=== PATIENT | female | born 1940 | race Caucasian/White ===

== ENCOUNTER 2021-11-04 17:07 | Inpatient (IN) | payer OTHER, MEDICARE ==
[~2021-11-04] VITALS: Ht 167.7 cm; Wt 95.3 kg
[2021-11-04] MEDS ORDERED: ONDANSETRON 4 MG/2 ML (SDV) Z0FRAN ONE (17:12)
[2021-11-04 17:34] LABS: BASOPHILS % (AUTO) 0 % (0-10); EOSINOPHILS % (AUTO) 0 % (0-10); HEMATOCRIT 47 % (35-52); HEMOGLOBIN 15.2 g/dL (11.5-16.0); LYMPHOCYTES # (AUTO) 0.3 10^3/uL (1.0-4.0); LYMPHOCYTES % (AUTO) 2 % (12-44); MEAN CORPUSCULAR HEMOGLOBIN 32 pg (25-34); MEAN CORPUSCULAR HGB CONC 32 g/dL (32-36); MEAN CORPUSCULAR VOLUME 98 fL (80-99); MEAN PLATELET VOLUME 11.8 fL (9.0-12.2); MONOCYTES # (AUTO) 1.2 10^3/uL (0.0-1.0); MONOCYTES % (AUTO) 7 % (0-12); NEUTROPHILS # (AUTO) 15.9 10^3/uL (1.8-7.8); NEUTROPHILS % (AUTO) 91 % (42-75); PLATELET COUNT 231 10^3/uL (130-400); WHITE BLOOD COUNT 17.5 10^3/uL (4.3-11.0)
--- NOTE | 2021-11-04 17:35 | ED Neurological Problem ---
General Chief Complaint: Neuro-Stroke Like Symptoms Stated Complaint: POSS STROKE Nursing Triage Note: PT TO RM 2 VIA [facility]. EMS CALLED FOR POSS STROKE. PT FOUND FACE DOWN AT HOME, UNK DOWN TIME. FAMILY LAST SPOKE TO PT YESTERDAY EVENING. PT VOMITING UPON ARRIVAL. PT UNRESPONSIVE EXCEPT FOR SOME TRACKING W EYES. RT SIDED HEMINEGLECT, MOVING BOTH EYES. EMS INITIATED 20G LAC SL, PATENT UPON ARRIVAL W 1L NS INFUSING. Source: EMS Exam Limitations: no limitations History of Present Illness Date Seen by Provider: Nov 04, 2021 Time Seen by Provider: 17:20 Initial Comments Patient is an 81-year-old female who presents to the emergency department, stroke alert. Last spoke with family sometime yesterday evening. Found just prior to arrival here transferred from [place] from home. Was found laying face down on the floor. EMS reports vomiting prior to arrival. She is nonverbal. Not following commands. Eyes are open, she appears to have a leftward gaze, pupils are 2 to 3 mm and reactive. She does appear to move all 4 extremities although is not again following commands will not squeeze on command would not raise her legs either 1. She would have a GCS of less than 8. Blood sugar reported by EMS greater than 100. Shortly after arrival after cursory neurologic exam it was decided to electively intubate the patient to protect her airway. She was sedated with etomidate, preoxygenated, 50 mg of rocuronium was given, #8 ET tube was used with help of the glide scope. Positive visualization of the cords, ET tube passed through the cords. Positive color change on CO2 detector, equal bilateral breath sounds. Secured at 23 cm at the teeth patient remained with an oxygen saturation in the upper 90s to 100 range. She is noted to be tachycardic and what appears to be atrial fibrillation with rapid ventricular response mid to high 120s. Blood pressure is 130 systolic. Review of systems unobtainable as the patient is altered Timing/Duration: unknown Severity: severe Allergies and Home Medications Allergies Coded Allergies: iodine (Unverified Allergy, Unknown, 04/04/15) Patient Home Medication List Home Medication List Reviewed: Yes Review of Systems Review of Systems Constitutional: see HPI Review of systems unobtainable as the patient is altered Past Ynzvysv-Lurbxs-Katmib Hx Patient Social History Smoking Status: Unknown if Ever Smoked Smokeless Tobacco Frequency: Unknown if Ever Used Use of E-Cig and/or Vaping dev: Unable to obtain Use of E-Cig and/or Vaping Toño: Unknown if Ever Used Substance use?: Unable to obtain Alcohol Use?: Unable to obtain Immunizations Up To Date First/Initial COVID19 Vaccinat: [facility] Second COVID19 Vaccination Tyrell: [facility] Third COVID19 Vaccination Date: UNK COVID19 Vaccine Turret Lathe Operator: UN Physical Exam Vital Signs Vital Signs - First Documented 11/04/21 11/04/21 17:08 18:00 Temp 36.6 Pulse 116 Resp 24 B/P (MAP) 134/90 (105) Pulse Ox 93 O2 Delivery Nasal Cannula O2 Flow Rate 10.00 FiO2 30 Capillary Refill : Less Than 3 Seconds Height, Weight, BMI Height: 5'4.00" Weight: 214lbs. oz. 97.481816qf; 33.00 BMI Method: General Appearance: WD/WN, no apparent distress HEENT: normal ENT inspection (No obvious ENT trauma), TMs normal (Right TM appears a little bluish discoloration), other (Pupils 2 to 3 mm, right eye appears to have a leftward gaze preference. Left eye is midline.; She does have some facial edema) Neck: normal inspection Respiratory: lungs clear, normal breath sounds, no respiratory distress, no accessory muscle use Cardiovascular: tachycardia, irregularly irregular Gastrointestinal: soft, other (Nondistended) Genital/Rectal: normal genital exam Extremities: normal inspection, no pedal edema Neurologic/Psychiatric: aphasia, other (Eyes open, nonverbal, not following commands seems to withdraw but cannot localize) Crainal Nerves: abnormal eye position, abnormal gag reflex, other (No facial palsy is noted) Motor/Sensory: positive Babinski's sign (questionable on the left more than right) Skin: normal color, cool, other (Patient has blisters over the anterior chest wall and epigastrium consistent with laying prone. Some of these blisters are ruptured some or not, patient has abrasion to the right knee also right distal lateral thigh) Procedures/Interventions Date of ETT Placement: Nov 04, 2021 Time of ETT Placement: 18:00 Intubation Method: orotracheal Tube Size: 8 Medications: Etomidate, Rocuronium Positive End Tide CO2: Yes Breath Sounds after Intubation: bilateral-equal Intubation Complications: no complications Post Intubation Xray: Yes Progress/Results/Core Measures Results/Orders Lab Results Laboratory Tests Test 11/04/21 17:13 11/04/21 17:17 11/04/21 17:25 Range/Units White Blood Count 17.5 H 4.3-11.0 10^3/uL Red Blood Count 4.79 3.80-5.11 10^6/uL Hemoglobin 15.2 11.5-16.0 g/dL Hematocrit 47 35-52 % Mean Corpuscular Volume 98 80-99 fL Mean Corpuscular Hemoglobin 32 25-34 pg Mean Corpuscular Hemoglobin Concent 32 32-36 g/dL Red Cell Distribution Width 14.1 10.0-14.5 % Platelet Count 231 130-400 10^3/uL Mean Platelet Volume 11.8 9.0-12.2 fL Immature Granulocyte % (Auto) 0 % Neutrophils (%) (Auto) 91 H 42-75 % Lymphocytes (%) (Auto) 2 L 12-44 % Monocytes (%) (Auto) 7 0-12 % Eosinophils (%) (Auto) 0 0-10 % Basophils (%) (Auto) 0 0-10 % Neutrophils # (Auto) 15.9 H 1.8-7.8 10^3/uL Lymphocytes # (Auto) 0.3 L 1.0-4.0 10^3/uL Monocytes # (Auto) 1.2 H 0.0-1.0 10^3/uL Eosinophils # (Auto) 0.0 0.0-0.3 10^3/uL Basophils # (Auto) 0.0 0.0-0.1 10^3/uL Immature Granulocyte # (Auto) 0.1 0.0-0.1 10^3/uL Neutrophils % (Manual) 89 % Lymphocytes % (Manual) 4 % Monocytes % (Manual) 7 % Eosinophils % (Manual) 0 % Basophils % (Manual) 0 % Band Neutrophils 0 % Blood Morphology Comment NORMAL Prothrombin Time 25.7 H 12.2-14.7 SEC INR Comment 2.3 H 0.8-1.4 Activated Partial Thromboplast Time 33 24-35 SEC D-Dimer 1.11 H 0.00-0.49 UG/ML Sodium Level 146 H 135-145 MMOL/L Potassium Level 4.0 3.6-5.0 MMOL/L Chloride Level 104 98-107 MMOL/L Carbon Dioxide Level 21 21-32 MMOL/L Anion Gap 21 H 5-14 MMOL/L Blood Urea Nitrogen 31 H 7-18 MG/DL Creatinine 1.10 0.60-1.30 MG/DL Estimat Glomerular Filtration Rate 51 BUN/Creatinine Ratio 28 Glucose Level 188 H 70-105 MG/DL Calcium Level 10.3 H 8.5-10.1 MG/DL Corrected Calcium 10.4 H 8.5-10.1 MG/DL Total Bilirubin 1.4 H 0.1-1.0 MG/DL Aspartate Amino Transf (AST/SGOT) 53 H 5-34 U/L Alanine Aminotransferase (ALT/SGPT) 29 0-55 U/L Alkaline Phosphatase 60 40-136 U/L Total Creatine Kinase 641 H 29-168 U/L Troponin I 1.130 *H <0.028 NG/ML Total Protein 7.3 6.4-8.2 GM/DL Albumin 3.9 3.2-4.5 GM/DL Triglycerides Level 108 <150 MG/DL Urine Color ORANGE Urine Clarity SL CLOUDY Urine pH 5.5 5-9 Urine Specific [place] >=1.030 1.016-1.022 Urine Protein 1+ H NEGATIVE Urine Glucose (UA) NEGATIVE NEGATIVE Urine Ketones NEGATIVE NEGATIVE Urine Nitrite NEGATIVE NEGATIVE Urine Bilirubin NEGATIVE NEGATIVE Urine Urobilinogen 0.2 < = 1.0 MG/DL Urine Leukocyte Esterase NEGATIVE NEGATIVE Urine RBC (Auto) 1+ H NEGATIVE Urine RBC NONE /HPF Urine WBC 5-10 H /HPF Urine Squamous Epithelial Cells 0-2 /HPF Urine Crystals NONE /LPF Urine Bacteria LARGE H /HPF Urine Casts NONE /LPF Urine Mucus NEGATIVE /LPF Urine Culture Indicated YES Influenza Type A (RT-PCR) Not Detected Not Detecte Influenza Type B (RT-PCR) Not Detected Not Detecte SARS-CoV-2 RNA (RT-PCR) Not Detected Not Detecte Micro Results Microbiology 11/04/21 Urine Culture - Preliminary, Resulted Gram Negative Jonah My Orders Orders - SLIME DELANEY MD Ondansetron Injection (Zofran Injectio (11/04/21 17:12) Cbc With Automated Diff (11/04/21 17:26) Protime With Inr (11/04/21 17:26) Partial Thromboplastin Time (11/04/21 17:26) Comprehensive Metabolic Panel (11/04/21 17:26) Fibrin Degradation Products (11/04/21 17:26) Troponin I Blair (11/04/21 17:) Ua Culture If Indicated (11/04/21 17:) Chest 1 View, Ap/Pa Only (11/04/21 17:26) Catheter(Urinary) Insert & Ass 03,15 (11/04/21 17:26) Ekg Tracing (11/04/21:) Nothing By Mouth (11/04/21 Dinner) Accucheck Stat ONCE (11/04/21 17:26) Ed Iv/Invasive Line Start (11/04/21 17:26) Ed Iv/Invasive Line Start (11/04/21:) Vital Signs Stroke Patient Q15M (11/04/21 17:26) Ct Head Wo-R/O Stroke (11/04/21 17:26) O2 (11/04/21:) Intake & Output 06,14,22 (11/04/21:) Monitor-Rhythm Ecg Trace Only (11/04/21 17:26) Dysphagia Screening Tool (11/04/21 17:26) Post Thrombolytic Adminstratio (11/04/21 17:26) Lipid Panel (11/05/21 06:00) Accucheck Stat ONCE (11/04/21:) Creatine Kinase (11/04/21 17:26) Ct Cervical Spine Wo (11/04/21 17:26) Propofol Drip (Icu) (Diprivan Drip (Icu) (11/04/21 17:30) Sedation Communication Q48H (11/04/21 17:29) Triglycerides (11/04/21 17:28) Triglycerides (11/06/21 17:28) Manual Differential (11/04/21 17:13) Urine Culture (11/04/21 17:17) Ed Admission (Communication) (11/04/21 19:05) Medications Given in ED Vital Signs/I&O 11/04/21 11/04/21 11/04/21 17:08 17:37 18:00 Temp 36.6 Pulse 116 101 94 Resp 24 18 B/P (MAP) 134/90 (105) 159/88 Pulse Ox 93 100 O2 Delivery Nasal Cannula O2 Flow Rate 10.00 FiO2 30 11/05/21 00:00 Intake Total 100 ml Balance 100 ml Blood Pressure Mean: 105 FSBG Bedside Testing Finger Stick Blood Glucose: 182 Blood Glucose Action Taken: DR DELANEY NOTIFIED Admisison Planning May Need Admission (Planning): 18:42 Progress Progress Note #1: Time: 18:42 Progress Note Clouded films to [facility]. Reviewed films with Neurosurgery refrigeration installer. Surgeon agrees that this is likely a non survivable head bleed. And even if survivable, her neurologic outcome would be dismal. Progress Note #2: Time: 19:04 Progress Note Discussed with Dr. Gil hospitalist, he is agreeable for palliative care/hospice admit. I had a long discussion with the brother who is DURABLE POWER OF SEMICONDU[employer] PROCESSING GROUP LEADER. He understands the gravity of the situation as well as potential neurologic outcome were aggressive medical/surgical treatment to be sought. Family would like extubation and palliative care. They are agreeable with hospice come passes as a provider. Patient will be extubated here in the emergency department. Orders per Dr. Gil Initial ECG Impression Date: Nov 04, 2021 Initial ECG Impression Time: 18:01 Initial ECG Rate: 83 Initial ECG Rhythm: A Fib/Flutter Initial ECG Impression: Atrial Fibrillation Initial ECG Comparisson: No Previous ECG Available Diagnostic Imaging Diagonstic Imaging: Xray Plain Films/CT/US/NM/MRI: chest Comments [facility]. [place], [place] NAME: [facility] REC#: [id number] PT STATUS: REG ER : 1940 PHYSICIAN: SLIME DELANEY MD ADMIT DATE: 11/04/21/ER Signed Date of Exam:11/04/21 CHEST 1 VIEW, AP/PA ONLY INDICATION: Stroke FINDINGS: ET tube tip is in the lower thoracic trachea, OG catheter in the distal stomach. The heart is enlarged. There is some mild vascular congestion. Prominence of the perihilar interstitial lung markings may reflect mild edema. There is partial atelectasis in the left base. No effusion or pneumothorax. IMPRESSION: Borderline cardiomegaly and vascular congestion. Mild left basilar atelectasis. Support apparatus in good alignment. No pleural fluid or pneumothorax. Dictated by: Dictated on workstation # [id number] Dict: 11/04/211756 Trans: 11/04/211803 [facility] [id number] Interpreted by: MERLE GRISSOM Electronically signed by: MERLE GRISSOM 11/04/211803 [facility] [place] [place] NAME: [facility] REC#: [id number] PT STATUS: REG ER : 1940 PHYSICIAN: SLIME DELANEY MD ADMIT DATE: 11/04/21/ER Signed Date of Exam:11/04/21 CT CERVICAL SPINE WO PROCEDURE: CT cervical spine without contrast. TECHNIQUE: Multiple contiguous axial images were obtained through the cervical spine without the use of intravenous contrast. Sagittal and coronal reformations were then performed. Auto Exposure Controls were utilized during the CT exam to meet ALARA standards for radiation dose reduction. INDICATION: Stroke, found down, neck injury. COMPARISON: None FINDINGS: Alignment is normal. There is no subluxation or fracture. Mild degenerative changes seen throughout. No osseous lesion is identified. ET tube and NG tube are present. Thyroid enlargement and nodularity is present, right greater than left. Nonemergent ultrasound correlation recommended. IMPRESSION: 1. No traumatic malalignment or fracture 2. Enlarged nodular thyroid. Dictated by: Dictated on workstation # [id number] Dict: 11/04/211801 Trans: 11/04/211810 ON LICENSE OF [facility] [id number] Interpreted by: ARUL PABLO Electronically signed by: RAUL PABLO 11/04/211810 Departure Communication (Admissions) Time/Spoke to Admitting Phy: 19:[address] Gil; will make Hospice admit if family is agreeable Impression Primary Impression: Intracerebral hemorrhage Qualified Codes: I61.6 - Nontraumatic intracerebral hemorrhage, multiple localized Disposition: ADMITTED INPATIENT (ERASED) Condition: Critical Admissions Decision to Admit Reason: Admit from ER (General) Decision to Admit/Date: Nov 04, 2021 Time/Decision to Admit Time: 19:04 Departure-Patient Inst. Referrals: SUNITA RODRIGUES MD (PCP/Family) Primary Care Physician SLIME DELANEY MD Nov 04, 2021 17:35
[2021-11-04] MEDS: PROPOFOL DRIP (ICU) 100 ML IV SCH (17:37)
[2021-11-04 17:44] LABS: ALBUMIN 3.9 GM/DL (3.2-4.5); FIBRIN DEGRADATION PRODUCTS 1.11 UG/ML (0.00-0.49); INR 2.3 (0.8-1.4); PROTHROMBIN TIME PATIENT 25.7 SEC (12.2-14.7)
[2021-11-04 17:45] LABS: CALCIUM 10.3 MG/DL (8.5-10.1)
[2021-11-04 17:46] LABS: TOTAL PROTEIN 7.3 GM/DL (6.4-8.2)
[2021-11-04 17:48] LABS: BILIRUBIN,TOTAL 1.4 MG/DL (0.1-1.0)
[2021-11-04 17:50] LABS: CREATININE SERUM 1.1 MG/DL (0.60-1.30)
[2021-11-04 17:53] LABS: BILIRUBIN,URINE NEGATIVE (NEGATIVE); CLARITY,URINE SL CLOUDY; COLOR,URINE ORANGE; GLUCOSE, URINE (UA) NEGATIVE (NEGATIVE); KETONES,URINE NEGATIVE (NEGATIVE); LEUKOCYTE ESTERASE ,URINE NEGATIVE (NEGATIVE); NITRITE,URINE NEGATIVE (NEGATIVE); PH,URINE 5.5 (5-9); PROTEIN,URINE 1+ (NEGATIVE)
[2021-11-04 17:54] LABS: BAND NEUTROPHILS 0 %; BASOPHILS % (MANUAL) 0 %; EOSINOPHILS % (MANUAL) 0 %; LYMPHOCYTES % (MANUAL) 4 %; MONOCYTES % (MANUAL) 7 %; NEUTROPHILS % (MANUAL) 89 %; RBC MORPH NORMAL
[2021-11-04 18:00] VITALS: BP 128/75
[2021-11-04 18:01] LABS: BACTERIA,URINE LARGE /HPF; SQUAMOUS EPITHELIAL CELL,UR 0-2 /HPF
--- NOTE | 2021-11-04 18:02 | Diagnostic Imaging Report ---
INDICATION: Stroke FINDINGS: ET tube tip is in the lower thoracic trachea, OG catheter in the distal stomach. The heart is enlarged. There is some mild vascular congestion. Prominence of the perihilar interstitial lung markings may reflect mild edema. There is partial atelectasis in the left base. No effusion or pneumothorax. IMPRESSION: Borderline cardiomegaly and vascular congestion. Mild left basilar atelectasis. Support apparatus in good alignment. No pleural fluid or pneumothorax. Dictated by: Dictated on workstation # [id number]
--- NOTE | 2021-11-04 18:09 | Diagnostic Imaging Report ---
PROCEDURE: CT cervical spine without contrast. TECHNIQUE: Multiple contiguous axial images were obtained through the cervical spine without the use of intravenous contrast. Sagittal and coronal reformations were then performed. Auto Exposure Controls were utilized during the CT exam to meet ALARA standards for radiation dose reduction. INDICATION: Stroke, found down, neck injury. COMPARISON: None FINDINGS: Alignment is normal. There is no subluxation or fracture. Mild degenerative changes seen throughout. No osseous lesion is identified. ET tube and NG tube are present. Thyroid enlargement and nodularity is present, right greater than left. Nonemergent ultrasound correlation recommended. IMPRESSION: 1. No traumatic malalignment or fracture 2. Enlarged nodular thyroid. Dictated by: Dictated on workstation # [id number]
--- NOTE | 2021-11-04 18:24 | Diagnostic Imaging Report ---
PROCEDURE: CT head wo r/o stroke. TECHNIQUE: Multiple contiguous axial images were obtained through the brain without the use of intravenous contrast. Auto Exposure Controls were utilized during the CT exam to meet ALARA standards for radiation dose reduction. INDICATION: Found down There are large bifrontal intracerebral hematomata on the left measuring 6.6 x 3.2 cm; on the right measuring 5.5 x 5.4 cm. There is a small amount of the bifrontal and temporoparietal extra-axial subarachnoid blood greater right blood in the subarachnoid space, most notable along the right sylvian fissure. There is some intraventricular blood within the dependent lateral ventricles. There is a wavy course with displacement of the falx to the right at its midportion into the left anteriorly owing to mass effect from the hemorrhage. There is sharon-hemorrhagic vasogenic edema bilaterally. There is CSF within the basilar and ambient cisterns. No herniation. The ventricular calibers and the occipital lobes and posterior bodies of the lateral ventricles are mildly distended. Early hydrocephalus could not be excluded. There is sulcal effacement in the bilateral frontal and temporal lobes owing to regional swelling. No calvarial fracture deformity. There is paranasal sinus membrane thickening. No fracture identified. IMPRESSION: Extensive intracranial hemorrhage with large bifrontal intracerebral hematomata, right greater than left. Subarachnoid blood and intraventricular blood with likely early hydrocephalus with mixed left and right deviation of the falx and displacement of the midline structures, as described. Sharon-hemorrhagic vasogenic edema and swelling noted with sulcal effacement. Patency of the basilar cisterns however maintained. Critical findings discussed with the Emergency Room physician. Dictated by: Dictated on workstation # [id number]
[2021-11-04 20:20] VITALS: BP 118/63
[2021-11-04] MEDS ORDERED: RT-ALBUTEROL/IPRATROPIUM 3 ML (DUONEB) VIAL INH PRN (20:45)
[2021-11-04] MEDS ORDERED: ARTIFICAL TEARS 0.4 ML UNIT DOSE (REFRESH PLUS) OU PRN (20:45)
[2021-11-04] MEDS ORDERED: PROMETHAZINE INJ 25 MG/ML (PHENERGAN) AMP IVP PRN (20:45)
[2021-11-04] MEDS ORDERED: ONDANSETRON 4 MG/2 ML (SDV) Z0FRAN IVP PRN (20:45)
[2021-11-04] MEDS ORDERED: BISACODYL 10 MG SUPP (DULCOLAX) PR PRN (20:45)
[2021-11-04] MEDS ORDERED: ACETAMINOPHEN 650 MG SUPP (TYLENOL) PR PRN (20:45)
[2021-11-04] MEDS: morphine INJ 4 MG/ML 1 ML (VIAL/SYRINGE) IV PRN (21:32)
[2021-11-04] MEDS: LORazepam INJ 2 MG/ML (ATIVAN) VIAL IVP PRN (23:28)
[2021-11-05] MEDS: morphine INJ 4 MG/ML 1 ML (VIAL/SYRINGE) IV PRN ×6 (02:12→20:00)
[2021-11-05] MEDS: PROPOFOL DRIP (ICU) 100 ML IV SCH (02:30)
[2021-11-05 05:53] LABS: CHOLESTEROL 212 MG/DL (< 200); HDL CHOLESTEROL 66 MG/DL (40-60); TRIGLYCERIDES 85 MG/DL (<150); VLDL CHOLESTEROL 17 MG/DL (5-40)
[2021-11-05] MEDS ORDERED: ROCURONIUM 10 MG/ML 5 ML SYRINGE IV ONE (07:34)
[2021-11-05] MEDS ORDERED: ETOMIDATE IV SOLN 20 MG/10 ML VIAL IV ONE (07:34)
[2021-11-05] MEDS: LORazepam INJ 2 MG/ML (ATIVAN) VIAL IVP PRN ×5 (09:11→23:34)
[2021-11-05] MEDS: GLYCOPYRROLATE 0.2 MG/ML (ROBINUL) 2 ML VIAL IV PRN ×3 (10:51→23:35)
[2021-11-05] MEDS: SALIVA STIMULANT MOUTH SPRAY (BIOTENE) 1.5 OZ MM PRN ×2 (17:32→23:39)
--- NOTE | 2021-11-05 17:34 | History & Physical-Hospitalist ---
History of Present Illness HPI/Chief Complaint Radha Bowles is an 81 year old female with PMH HTN, HLD, AFib on coumadin, who presented unresponsive. She was found down in her home. Workup in the ER revealed extensive bilateral intraparenchymal hematomas. She was intubated on arrival. Her case was discussed with Neurosurgery at [place] and this was thought to be an unsurvivable injury. Her family elected to transition her to comfort measures only. She was extubated and started on the comfort care order set. She was set up with [facility]. Source: family Exam Limitations: clinical condition Date Seen 11/05/21 Time Seen by a Provider: 12:45 Attending Physician Sasha Claudio MD PCP No,Local Physician Referring Physician Date of Admission Nov 04, 2021 at 19:07 Home Medications & Allergies Home Medications Reviewed patient Home Medication Reconciliation performed by pharmacy medication reconciliations recycling technician and/or nursing. Patients Allergies have been reviewed. Allergies Allergies Coded Allergies iodine (Unverified Allergy, Unknown, 04/04/15) Past Qcxiegj-Znowsw-Kacfqt Hx Patient Social History Smoking Status: Unknown if Ever Smoked Smokeless Tobacco Frequency: Unknown if Ever Used Use of E-Cig and/or Vaping dev: Unable to obtain Use of E-Cig and/or Vaping Toño: Unknown if Ever Used Substance use?: Unable to obtain Alcohol Use?: Unable to obtain Immunizations Up To Date First/Initial COVID19 Vaccinat: UNK Second COVID19 Vaccination Tyrell: UNK Current Status Primary Language: Greek Preferred Spoken Language: Greek Past Medical History Atrial Fibrillation, High Cholesterol, Hypertension Family Medical History No Pertinent Family Hx Review of Systems ROS-Unable to Obtain: unresponsive Constitutional: see HPI Physical Exam Physical Exam Vital Signs Vital Signs - First Documented 11/04/21 11/04/21 17:08 18:00 Temp 36.6 Pulse 116 Resp 24 B/P (MAP) 134/90 (105) Pulse Ox 93 O2 Delivery Nasal Cannula O2 Flow Rate 10.00 FiO2 30 Capillary Refill : Less Than 3 Seconds Height, Weight, BMI Height: 5'4.00" Weight: 214lbs. oz. 97.556607ul; 33.00 BMI Method: General Appearance: No Apparent Distress, Obese Respiratory: Respiratory Distress (tachypnea), Rhonci Cardiovascular: Regular Rate, Rhythm, No Murmur Gastrointestinal: Normal Bowel Sounds, Soft Extremity: Normal Inspection, Pedal Edema Neurologic/Psychiatric: Other (unresponsive) Skin: Cool, Pallor Results Results/Procedures Labs Laboratory Tests 11/04/21 17:13 Patient resulted labs reviewed. Imaging: Reviewed Imaging Films, Reviewed Imaging Report Assessment/Plan Admission Diagnosis Intraparenchymal hemorrhage Admission Status: Inpatient Order (span 2 midnights) Reason for Inpatient Admission: IV medications Assessment and Plan Intraparenchymal hemorrhage of the brain Poor prognosis Comfort care measures only Hospice care CT revealed bilateral intraparenchymal hemorrhage Neurosurgery evaluated and deemed not a surgical candidate Admitted on [facility] Comfort care order set in place Receiving IV Morphine, Ativan, and Glycopyrrolate Diagnosis/Problems Diagnosis/Problems (1) Intraparenchymal hemorrhage of brain Status: Acute (2) Hospice care Status: Acute (3) Comfort measures only status Status: Acute (4) NSTEMI (non-ST elevation myocardial infarction) Status: Acute SASHA CLAUDIO MD Nov 05, 2021 17:34
== END 2021-11-06 00:20 | disposition expired | DRG 951 ==
LOC: EDUNIT# 17:07 → ER 17:09 → 4TH 19:07
PROVIDERS: ADMIT Internal Medicine; ATTEND Internal Medicine
DX: Z51.5 Encounter for palliative care (principal); I61.8 Other nontraumatic intracerebral hemorrhage; I21.4 Non-ST elevation (NSTEMI) myocardial infarction; I10 Essential (primary) hypertension; E78.00 Pure hypercholesterolemia, unspecified; I48.91 Unspecified atrial fibrillation; Z91.041 Radiographic dye allergy status; Z79.01 Long term (current) use of anticoagulants; Z20.822 Contact with and (suspected) exposure to COVID-19; Z66 Do not resuscitate
CPT/HCPCS: 31500; 36415; 51702; 70450; 71045; 72125; 80053; 80061; 81000; 82550; 84478; 84484; 85007; 85027; 85379; 85610; 85730; 87070; 87077; 87088; 87186; 87205; 87636; 93005; 93041; 94002; 96374